=== PATIENT | male | born 1985 | race Hispanic/Latino ===

== ENCOUNTER 2022-11-24 20:11 | Emergency (ER) | payer SELFPAY ==
[~2022-11-24] VITALS: Ht 162.6 cm; Wt 65.0 kg
[2022-11-24 21:10] VITALS: BP 142/78
== END 2022-11-24 22:42 | disposition home or self-care (01) | DRG 605 ==
LOC: ED 20:11
DX: S00.83XA Contusion of other part of head, initial encounter (principal); Y04.0XXA Assault by unarmed brawl or fight, initial encounter; H11.31 Conjunctival hemorrhage, right eye